=== PATIENT | female | born 1995 | race Caucasian/White ===

== ENCOUNTER 2020-03-31 20:30 | Emergency (ER) | payer BC ==
[~2020-03-31] VITALS: Ht 162.6 cm; Wt 64.0 kg
[2020-03-31 20:48] VITALS: Ht 162.6 cm; Wt 64.0 kg
[2020-03-31 21:38] VITALS: BP 119/68
== END 2020-03-31 21:38 | disposition home or self-care (01) ==
LOC: ED 20:30
DX: T16.2XXA Foreign body in left ear, initial encounter (principal); W45.8XXA Other foreign body or object entering through skin, initial encounter; Y93.89 Activity, other specified; Y92.89 Other specified places as the place of occurrence of the external cause; Y99.8 Other external cause status